=== PATIENT | female | born 1990 | race Two or more races ===

== ENCOUNTER 2024-11-24 11:52 | Emergency (ER) | payer OTHER ==
[~2024-11-24] VITALS: Ht 177.8 cm; Wt 93.4 kg
[2024-11-24] MEDS ORDERED: METFORMIN HCL500 M3 PO (12:18)
[2024-11-24] MEDS ORDERED: ACETAMINOPHEN 500 MG GEL..CAP PO ONE (15:00)
[2024-11-24] MEDS ORDERED: BUTALB/ACETAMINOPHEN/CAFFEINE 1 TAB TABLET PO ONE (17:15)
== END 2024-11-24 18:22 ==
LOC: ER 13:17
DX: G43.809 Other migraine, not intractable, without status migrainosus (principal)

== ENCOUNTER 2025-04-25 09:00 | Day surgery (SDC) | payer OTHER ==
[2025-04-21 11:19] LABS: URINE APPEARANCE Clear; URINE BILIRRUBIN Negative (NEGATIVE); URINE BLOOD Negative; URINE COLOR Yellow; URINE GLUCOSE Negative (NEGATIVE); URINE KETONE Negative (NEGATIVE); URINE LEUKOCYTE Trace; URINE NITRATE Negative; URINE PROTEIN Negative (NEGATIVE); URINE UROBILINOGEN 0.2 E.U./dl
[2025-04-21 11:20] LABS: BASO % 0.6 % (0.1-1.2); EOS # 0.12 (0.04-0.54); EOS % 1.8 % (0.7-7.0); LYMPH # 2.16 (1.18-3.74); LYMPH % 32.1 % (19.3-53.1); MEAN PLATELET VOLUME 10.00 fl (9.4-12.4); MONO # 0.37 (0.24-0.82); MONO % 5.5 % (4.7-12.5); NEUT # 4.01 (1.56-6.13); NEUT % 59.7 % (34.0-71.1); RED CELL DISTRIBUTION WIDTH 13.1 % (11.6-14.4)
[2025-04-21 11:25] LABS: URINE BACTERIA 736.6 uL (0.0-1933); URINE EPITHELIAL CELLS 47.0 uL (0.0-38.8); URINE RBC 6.6 uL (0.0-20.8); URINE WBC 23.2 uL (0.0-23.2)
[2025-04-21 11:40] VITALS: BP 143/90
[2025-04-21 11:40] LABS: URINE CAST 0.14 uL (0.0-1.40)
[2025-04-21 11:52] LABS: INR 1.02
[2025-04-21 12:30] LABS: ALT/SGPT 25.0 U/L (12-78); AST/SGOT 16.0 U/L (15-37); BILIRUBIN TOTAL 0.44 mg/dL (0.3-1.2); BUN CREA RATIO 15.0 (7.0-25.0); CREATININE SERUM 0.59 mg/dL (0.55-1.02); GFR 115.33; GLOBULINA 3.7 G/DL (2.4-3.5); GLUCOSE FASTING 85.0 mg/dL (65-100); OSMOLALITY SERUM 279.0 MOSM/KG (275-295)
[~2025-04-25 09:00] MED LIST: ALDACTONE50 MG PO; ALLEGRA ALLERG180 MG PO; METFORMIN HCL500 M3 PO; MULTIPLE VITAM1 EAC2 PO
[2025-04-25] MEDS ORDERED: CEFAZOLIN SODIUM 1,000 MG VIAL ONE (10:11)
[2025-04-25] MEDS ORDERED: BUPIVACAINE HCL/MPF 0.5% 30ML VIAL ONE (12:57)
[2025-04-25] MEDS ORDERED: POVIDONE-IODINE 118 ML BOTT TOP ONE (12:57)
[2025-04-25] MEDS ORDERED: DIBUCAINE 30 GM TUBE ONE (12:57)
[2025-04-25] MEDS ORDERED: HEMOSTATIC MATRIX 1 KIT KIT TOP ONE (12:57)
[2025-04-25] MEDS ORDERED: LIDOCAINE HCL 1%/EPINEPHRINE 20ML VIAL IJ ONE (12:57)
== END 2025-04-25 19:35 | disposition home or self-care (01) ==
LOC: CIR.AMB 09:00
PROVIDERS: ATTEND Colon & Rectal Surgery
DX: L05.91 Pilonidal cyst without abscess (principal); S31.000A Unspecified open wound of lower back and pelvis without penetration into retroperitoneum, initial encounter